=== PATIENT | male | born 1960 | race Caucasian/White ===

== ENCOUNTER 2023-06-02 09:31 | Emergency (ER) | payer OTHER, SELFPAY ==
[2023-06-02 09:34] VITALS: BP 194/102; PULSE 67; RESP 18; TEMP 37; O2SAT 96; BMI 30.4
--- NOTE | 2023-06-02 10:17 | ED_ITS ---
HPI - Wound/Laceration General Date Seen: 06/02/23 Chief Complaint: Laceration/Wound Stated Complaint: R hand deep lac from metal Time Seen by Provider: 06/02/23 09:37 Source: patient Mode of arrival: ambulatory Limitations: no limitations History of Present Illness HPI narrative: Patient is a 62-year-old male presenting for laceration to his dorsal aspect of his right hand between the thumb and index finger. It is about 1 cm in length. He states shortly prior to arrival he was working with some steel at home when it cut him. States his last tetanus shot has definitely been within the past 10 years. No other injuries noted. A denies numbness or weakness. States he has full movement of the hand. No other concerns noted. Related Data Home Medications Medication Instructions Recorded Confirmed atorvastatin 40 mg tablet 40 mg PO QPM 06/02/23 06/02/23 lisinopril 40 mg tablet 40 mg PO DAILY 06/02/23 06/02/23 Allergies Allergy/AdvReac Type Severity Reaction Status Date / Time No Known Drug Allergies Allergy Verified 06/02/23 09:36 Review of Systems Narrative: Pertinent systems reviewed and are negative unless stated is HPI PFSH PFSH Social History Smoking Status: Never smoker Do you use any of these nicotine containing products: None How often do you have a drink containing alcohol: never AUDIT-C Alcohol total score: 0 Non-prescribed substance use: denies use Exam Narrative: Exam Narrative: Const: Well-nourished, Well-developed, in no distress Eyes: PERRL, no conjunctival injection, and symmetrical lids HENT: Atraumatic external nose and ears. Moist mucous membranes. Removed MSK:Extremities w/o deformity, Normal Active ROM Skin: Warm, Dry. 1 cm laceration dorsal right hand between thumb and index finger. Bleeding controlled Neuro: Normal Muscle tone, No focal neurological deficits. Psych: Awake, Alert, & Oriented x3. Appropriate mood and affect. Const: Vital Signs, click to edit/add: Vital Signs - 24 hr 06/02/23 09:34 Temperature 98.6 F Pulse Rate [Right Pulse Oximeter] 67 Respiratory Rate 18 Blood Pressure [Ri ght Upper Arm] 194/102 H Pulse Oximetry 96 Oxygen Delivery Me thod Room Air Course Vital Signs Vital signs: Initial Vital Signs Temperature 98.6 F 06/02/23 09:34 Temperature Source Temporal Artery Scan 06/02/23 09:34 Pulse Rate 67 06/02/23 09:34 Respiratory Rate 18 06/02/23 09:34 Blood Pressure 194/102 H 06/02/23 09:34 Blood Pressure Mean 132 H 06/02/23 09:34 Blood Pressure Position Sitting 06/02/23 09:34 Pulse Oximetry 96 06/02/23 09:34 Oxygen Delivery Method Room Air 06/02/23 09:34 Vital Signs Temperature 98.6 F 06/02/23 09:34 Pulse Rate 67 06/02/23 09:34 Respiratory Rate 18 06/02/23 09:34 Blood Pressure 194/102 H 06/02/23 09:34 Pulse Oximetry 96 06/02/23 09:34 Oxygen Delivery Method Room Air 06/02/23 09:34 Temperature 98.6 F 06/02/23 09:34 Pulse Rate 67 06/02/23 09:34 Respiratory Rate 18 06/02/23 09:34 Blood Pressure 194/102 H 06/02/23 09:34 Pulse Oximetry 96 06/02/23 09:34 Oxygen Delivery Method Room Air 06/02/23 09:34 MDM - Wound/Laceration MDM Narrative Medical decision making narrative: Patient is a 62-year-old male presenting for right hand laceration. Do not see any injury to deep structures. Has full range of motion of the thumb and hand. No other injuries noted. Do not believe imaging is necessary at this time. Area was cleaned and 3 sutures were placed. See procedure note. He is otherwise doing well. Do not believe antibiotics are necessary at this time but I given return precautions for signs of hand infection. He will be discharged at this time. He is agreeable to this plan Discharge Plan Discharge Clinical Impression: Laceration Patient Disposition: Home, Self-Care Condition: Stable Instructions: Laceration (DC) Additional Instructions: Follow-up with your primary care provider or urgent care in the next 7 days to have the 3 sutures removed. For next 6 months, once sutures are removed, whenever you go outside put a dab of sunscreen over the laceration site to improve scar appearance. Topical antibiotics are not necessary at this time. Patient can shower but do not submerge the laceration until sutures are removed You will likely see some redness around the laceration site in the morning. This is usually from inflammation but he knows he keeps getting larger or eat noticing red streaks going up the arm return to the emergency department immediately for re-evaluation for concern of infection. The 18 infections can get bad fast but we do not but everybody on antibiotics unless they need them so we do not cause antibiotic resistance Prescriptions: No Action atorvastatin 40 mg tablet 40 mg PO QPM lisinopril 40 mg tablet 40 mg PO DAILY Stand Alone [facility] Inst[facility] Procedures Laceration Right hand: Name of person performing procedure: Nicola Lira Site: hand Side (If applicable): right Size (cm): 1 Description: linear and clean Depth: simple, single layer Local Anesthetic: lidocaine 1% Amount of anesthesia used (mL): 3 Pre-repair: wound explored, irrigated extensively and deep structures intact Skin layer closed with: nylon Size (cm): 5-0 Number of sutures: 3 Technique: simple, interrupted
== END 2023-06-02 10:41 | disposition home or self-care (01) ==
LOC: ED 10:22
PROVIDERS: Emergency Provider Student in an Organized Health Care Education/Training Program; PCP Surgery
DX: S61.411A Laceration without foreign body of right hand, initial encounter (principal); W26.9XXA Contact with unspecified sharp object(s), initial encounter
CPT/HCPCS: 12001; 99282; 99283